=== PATIENT | female | born 1975 | race Caucasian/White ===

== ENCOUNTER 2021-12-04 06:52 | Emergency (ER) | payer OTHER ==
[~2021-12-04] VITALS: Ht 152.4 cm; Wt 90.7 kg
[2021-12-04] MEDS ORDERED: ALBUTEROL/IPRATROPIUM 3 ML NEB NEB ONE (08:00)
[2021-12-04] MEDS ORDERED: PREDNISONE20 MG PO (08:26)
[2021-12-04] MEDS ORDERED: PROMETHAZINE-D473 ML PO (08:26)
== END 2021-12-04 08:32 | disposition home or self-care (01) ==
LOC: ER 07:20
DX: U07.1 COVID-19 (principal); J40 Bronchitis, not specified as acute or chronic; R06.02 Shortness of breath
CPT/HCPCS: 71045; 99284; U0002